=== PATIENT | female | born 1990 | race Caucasian/White ===

== ENCOUNTER 2018-10-04 09:27 | Outpatient (CLI) | payer OTHER, SELFPAY ==
[2018-10-04 11:08] LABS: Calculated LDL 59 mg/dL; Cholesterol 119 mg/dL (50-200); HDL Cholesterol 54 mg/dL (40-60); Triglyceride 34 mg/dL (30-150)
== END 2018-10-04 09:47 ==
PROVIDERS: PCP Nurse Practitioner Family; Visit Provider Nurse Practitioner
DX: Z13.6 Encounter for screening for cardiovascular disorders (principal)
CPT/HCPCS: 36415; 80061; 83721

== ENCOUNTER 2018-12-31 13:59 | Outpatient (REF) | payer OTHER, SELFPAY ==
--- NOTE | 2018-12-31 13:20 | PAPFT_PTH ---
PATIENT: Ca Cummins LOC: [facility] U#:[id number] AGE/SX: 28/F ROOM: RE12/31/[address]: ROSSY Tian : 1990 BED: DIS: 12/31/2018 SPEC #: [id number] RECD: 12/31/18 18:34 STATUS: MICHELINE REIsidro #: [id number] PHAM: 12/31/18 13:[address]: Anne Wilson DEPT: [facility] Cytology RECD BY: Alyssia De Luna ENTERED: 12/31/18 18:34 SP TYPE: PAPFT ROSSI DR: ROSSY Marrero Tissues: 1 - CX/ENDOCX FOR PAP SMEARS Procedures: PAP THIN PREP/[facility] Screening Comments: [id number]
[2019-01-01 15:28] LABS: Chlamydia Result Negative (Negative); GC Result Negative (Negative); Specimen Description ENDOCERVICAL
== END 2018-12-31 14:19 ==
LOC: LBN 13:59
PROVIDERS: PCP Nurse Practitioner Family; Visit Provider Nurse Practitioner Family
DX: Z11.3 Encounter for screening for infections with a predominantly sexual mode of transmission (principal); Z12.4 Encounter for screening for malignant neoplasm of cervix; Z11.51 Encounter for screening for human papillomavirus (HPV)
CPT/HCPCS: 87491; 87591; 88142

== ENCOUNTER 2020-01-20 13:30 | Outpatient (REF) | payer OTHER, SELFPAY ==
--- NOTE | 2020-01-20 13:15 | PAPFT_PTH ---
PATIENT: Ca Cummins LOC: [facility] U#:[id number] AGE/SX: 29/F ROOM: RE01/20/[address]: ROSSY Tian : 1990 BED: DIS: 01/20/2020 SPEC #: [id number] RECD: 01/20/20 18:10 STATUS: MICHELINE REQ #: [id number] PHAM: 01/20/20 13:[address]: Anne Wilson DEPT: [facility] OF [facility] Cytology RECD BY: Alyssia De Luna ENTERED: 01/20/20 18:11 SP TYPE: PAPFT OTHR DR: ROSSY Marrero Tissues: 1 - CX/ENDOCX FOR PAP SMEARS Procedures: PAP THIN PREP/[facility] Screening HPV DNA PROBE Comments: [id number]
== END 2020-01-20 13:50 ==
LOC: LBN 13:30
PROVIDERS: PCP Nurse Practitioner Family; Visit Provider Nurse Practitioner Family
DX: Z12.4 Encounter for screening for malignant neoplasm of cervix (principal); Z11.51 Encounter for screening for human papillomavirus (HPV)
CPT/HCPCS: 88142; 87624

== ENCOUNTER 2022-11-20 14:08 | Outpatient (CLI) | payer OTHER, SELFPAY ==
[2022-11-20 14:14] LABS: HCT 41.3 % (36.0-46.0); MCH 28.7 pg (27.0-33.0); MCHC 33.9 % (32.0-36.0); MCV 85 fL (80-95); MPV 10.4 fL (8.0-11.0); Platelet Count 246 10^3/uL (130-400); RBC 4.88 10^6/uL (3.93-5.22); RDW 12.5 % (11.7-14.6); RDW-SD 38.6 fL; WBC 7.85 10^3/uL (4.4-10.8)
[2022-11-20 15:15] LABS: TSH (W/Ref FT4) 2.47 uIU/mL (0.36-3.74)
== END 2022-11-20 14:09 | disposition home or self-care (01) ==
LOC: LBO 14:10
PROVIDERS: PCP Nurse Practitioner Family; Visit Provider Nurse Practitioner Women's Health
DX: R00.2 Palpitations (principal); R42 Dizziness and giddiness
CPT/HCPCS: 36415; 85027; 84443

== ENCOUNTER 2022-11-20 14:11 | Outpatient (REF) | payer OTHER, SELFPAY ==
--- NOTE | 2022-11-20 13:30 | PAPFT_PTH ---
PATIENT: Ca Cummins LOC: [facility] U#:[id number] AGE/SX: 31/F ROOM: RE11/20/[address]: Bharti Ramirez NP : 1990 BED: DIS: 11/20/2022 SPEC #: [id number] RECD: 11/20/22 17:58 STATUS: MICHELINE REQ #: [id number] PHAM: 11/20/22 13:[address]: James GRAF,Bharti DEPT: [facility] Cytology RECD BY: Alyssia De Luna ENTERED: 11/20/22 17:59 SP TYPE: PAPFT OTHR DR: Margot Hughes, [employer] Tissues: 1 - CX/ENDOCX FOR PAP SMEARS Procedures: PAP THIN PREP/[facility] Screening HPV DNA PROBE Comments: [id number] (CHLAMYDIA/GC)
[2022-11-21 15:50] LABS: Chlamydia Result Negative (Negative); GC Result Negative (Negative)
== END 2022-11-20 14:12 | disposition home or self-care (01) ==
LOC: LBN 14:11
PROVIDERS: PCP Nurse Practitioner Family; Visit Provider Nurse Practitioner Women's Health
DX: Z11.3 Encounter for screening for infections with a predominantly sexual mode of transmission (principal); Z12.4 Encounter for screening for malignant neoplasm of cervix; Z11.51 Encounter for screening for human papillomavirus (HPV)
CPT/HCPCS: 87491; 87591; 88142; 87624

== ENCOUNTER 2023-11-27 13:12 | Outpatient (REF) | payer OTHER, SELFPAY ==
[2023-11-28 14:16] LABS: Chlamydia Result Negative (Negative); GC Result Negative (Negative)
== END 2023-11-27 13:13 | disposition home or self-care (01) ==
LOC: LBN 13:12
PROVIDERS: Visit Provider Nurse Practitioner Women's Health
DX: Z11.3 Encounter for screening for infections with a predominantly sexual mode of transmission (principal); Z01.419 Encounter for gynecological examination (general) (routine) without abnormal findings
CPT/HCPCS: 87491; 87591

== ENCOUNTER 2024-10-17 13:59 | Outpatient (CLI) | payer BC, MEDICAID, SELFPAY | END 2024-10-17 14:00 | disposition home or self-care (01) | LOC: LBO 13:59 | PROVIDERS: Visit Provider Advanced Practice Midwife | DX: O26.851 Spotting complicating pregnancy, first trimester (principal) | CPT/HCPCS: 36415; 84702 ==

== ENCOUNTER 2024-11-14 12:45 | Outpatient (REF) | payer BC, MEDICAID, SELFPAY ==
--- NOTE | 2024-11-14 12:10 | PAPFT_PTH ---
PATIENT: Ca Cummins LOC: [facility] U#:[id number] AGE/SX: 33/F ROOM: RE11/14/[address]: Kristy Sanders : 1990 BED: DIS: 11/14/2024 SPEC #: [id number] RECD: 11/14/24 13:07 STATUS: MICHELINE REQ #: [id number] PHAM: 11/14/24 12:[address]: Kristy Sanders DEPT: [facility] Cytology RECD BY: Alyssia De Luna ENTERED: 11/14/24 13:08 SP TYPE: PAPFT OTHR DR: Unknown,Unknown Tissues: 1 - CX/ENDOCX FOR PAP SMEARS Procedures: PAP THIN PREP/[facility] Screening HPV DNA PROBE Comments: [id number] (HPV 16 & 18/45) (CHLAMYDIA/GC)
[2024-11-17 11:54] LABS: Chlamydia Result Negative (Negative); GC Result Negative (Negative)
== END 2024-11-14 12:46 | disposition home or self-care (01) ==
LOC: LBN 12:45
PROVIDERS: Visit Provider Advanced Practice Midwife
DX: N89.8 Other specified noninflammatory disorders of vagina (principal); Z12.4 Encounter for screening for malignant neoplasm of cervix
CPT/HCPCS: 87491; 87591; 88142; 87086; 87480; 87510; 87624; 87660

== ENCOUNTER 2024-11-19 04:11 | Outpatient (CLI) | payer BC, MEDICAID, SELFPAY ==
[2024-11-19 18:12] LABS: Abs Immature Grans 0.04 10^3/uL (0.0-0.06); HCT 38.5 % (36.0-46.0); HGB 12.8 g/dL (11.2-15.7); Immature Grans % 0.4 %; MCH 28.3 pg (27.0-33.0); MCHC 33.2 % (32.0-36.0); MCV 85 fL (80-95); MPV 11.2 fL (8.0-11.0); Platelet Count 221 10^3/uL (130-400); RBC 4.53 10^6/uL (3.93-5.22); RDW 12.8 % (11.7-14.6); RDW-SD 39.5 fL; WBC 10.13 10^3/uL (4.4-10.8)
[2024-11-20 19:14] LABS: HIV-1/2 Ag & Ab Screen Negative (Negative)
[2024-11-20 19:18] LABS: Hepatitis C Ab w Rflx HCV PCR Negative (Negative)
[2024-11-21 11:21] LABS: Rubella IgG Ab (UVM) Positive (See Note)
[2024-11-23 12:45] LABS: Syphilis IgG w/Reflex Nonreactive (Nonreactive)
== END 2024-11-19 04:12 | disposition home or self-care (01) ==
LOC: LBO 04:12
PROVIDERS: Visit Provider Advanced Practice Midwife
DX: Z34.91 Encounter for supervision of normal pregnancy, unspecified, first trimester (principal)
CPT/HCPCS: 36415; 81220; 81222; 81329; 86787; 86803; 86850; 86900; 86901; 87340; 87389; 87491; 87591; 85025; 86762; 86777; 86778; 86780; 87086